=== PATIENT | female | born 1950 | race Caucasian/White ===

== ENCOUNTER 2017-08-30 17:38 | Inpatient (IN) | payer MEDICARE, BC ==
[2017-08-30 19:21] LABS: Hematocrit 35 % (35-47); Hemoglobin 12.1 g/dl (12.0-16.0); Mean Corpuscular HGB Conc 35 g/dl (31-36); Mean Corpuscular Hemoglobin 31 pg (27-31); Mean Corpuscular Volume 88 fL (80-97); Mean Platelet Volume 7.6 um3 (7.4-10.4); Platelet Count 287 10^3/ul (150-450); Red Blood Count 3.91 10^6/ul (4.00-5.40); Red Cell Distribution Width 13 % (10.5-15); White Blood Count 19.6 10^3/ul (3.5-10.8)
[2017-08-30 19:38] LABS: EGFR Non-African American 49.5 (>60)
[2017-08-30 19:44] LABS: ABS Basophils 0.1 10^3/ul (0-0.2); ABS Eosinophils 0 10^3/ul (0-0.6); ABS Lymphocytes 1.8 10^3/ul (1.0-4.8); ABS Monocytes 1.6 10^3/ul (0-0.8); ABS Neutrophils 16.1 10^3/ul (1.5-7.7); ABS Nucleated RBC 0 10^3/ul; Eosinophil % 0.2 % (0-6); Lymphocyte % 9.2 % (25-47); Nucleated Red Blood Cells % 0
[2017-08-30 20:29] LABS: Urine Appearance Cloudy; Urine Blood Negative (Negative); Urine Color Yellow; Urine Ketones Negative (Negative); Urine Protein Negative (Negative); Urine Specific Gravity 1.015 (1.010-1.030); Urine Urobilinogen Negative (Negative)
[2017-08-30] MEDS ORDERED: Iodixanol* (CONTRAST) 320 MG/ML 100 ML SDV IV ONE (21:00)
[2017-08-30] MEDS ORDERED: Metoclopramide IV* 5 MG/ML 2 ML VIAL IV ONE (23:16)
[2017-08-30] MEDS ORDERED: HYDROmorphone INJ* 2 MG/ML CARPUJECT SYRINGE IV SLOW PU ONE (23:16)
[2017-08-30] MEDS ORDERED: Ciprofloxacin 400MG IVPREMIX(* 400 MG/200 ML BAG IVPB ONE (23:59)
[2017-08-31] MEDS ORDERED: HYDROmorphone INJ* 2 MG/ML CARPUJECT SYRINGE IV PRN
[2017-08-31] MEDS ORDERED: metroNIDAZOLE IV 500 MG/100ML* 500 MG/100 ML BAG IVPB ONE
--- NOTE | 2017-08-31 00:19 | ED ---
Rick Jeffries Rebecca, scribed for Zoe Glass MD on 08/30/17 at 2010 . Abdominal Pain/Female - HPI Summary HPI Summary: Pt is a 66 y/ F accompanied by her son who presents to ED referred from [facility] c /o sudden onset RLQ abdominal pain since yesterday morning. Pain has been intermittent since onset, improving yesterday, then coming back this morning. On triage, pain is mild ranked 3/10, though on examination it is 4-5/10. Sx aggravated by walking. Additionally c/o nausea predominantly yesterday, slightly this morning. Denies fever, vomiting, dysuria, urinary frequency, hematuria, blood in stool, and hematemesis. Initially suspected UTI, but cranberry juice had no effect. Last ate at about 1300. Notes difficulty intubating as during her knee surgeries (done in [place]) and that fiber optics had to be used. No prior abdominal surgeries. Reports her weight to be 290 pounds. - History of Current Complaint Chief Complaint: EDAbdPain Stated Complaint: ABD PAIN Time Seen by Provider: 08/30/17 20:03 Hx Obtained From: Patient, Family/Trolley Wire Installer - son Onset/Duration: Sudden Onset, Lasting Days - Started yesterday, Still Present Timing: Intermittent Episode Lasting Severity Initially: Mild - 3/10 on triage Severity Currently: Moderate - 4-5/10 Pain Intensity: 3 - On triage Pain Scale Used: 0-10 Numeric Location: Discrete At: RLQ Radiates: No Character: Sharp Aggravating Factor(s): Other: - Walking Alleviating Factor(s): Nothing Associated Signs and Symptoms: Positive: Nausea. Negative: Fever, Urinary Symptoms, Vomiting Allergies/Adverse Reactions: Allergies Allergy/AdvReac Type Severity Reaction Status Date / Time Penicillins Allergy Unknown Rash Verified 08/30/17 18:15 Sulfa (Sulfonamide Allergy Unknown Rash Verified 08/30/17 18:16 Antibiotics) Home Medications: Home Medications Aspirin EC TAB* [Ecotrin EC Low Dose 81 MG*] 81 mg PO DAILY 08/30/17 [History Confirmed 08/30/17] Cholecalciferol (Vitamin D3) [Vitamin D3] 1,000 unit PO DAILY 08/30/17 [History Confirmed 08/30/17] Citalopram TAB* [CeleXA TAB*] 20 mg PO DAILY 08/30/17 [History Confirmed ] Eletriptan 40 mg (Nf)* [Relpax (NF)] 40 mg PO DAILY PRN 08/30/17 [History Confirmed 08/30/17] Esomeprazole(NF) [NEXium(NF)] 20 mg PO QAM 08/30/17 [History Confirmed 08/30/17] Ezetimibe/Simvastat 12/28(NF) [Vytorin 12/28(NF)] 1 tab PO DAILY 08/30/17 [ History Confirmed 08/30/17] Fexofenadine/Pseudoephedrine [Emily-D 24 Hour Tablet] 1 tab PO DAILY 08/30/17 [History Confirmed 08/30/17] Ibuprofen TAB* [Motrin TAB* 800 MG] 800 mg PO Q6H PRN 08/30/17 [History Confirmed 08/30/17] Levothyroxine TAB* [Synthroid TAB*] 137 mcg PO DAILY 08/30/17 [History Confirmed 08/30/17] Magnesium Oxide [Magnesium] 250 mg PO DAILY 08/30/17 [History Confirmed 08/30/17 ] Nebivolol (NF) [Bystolic (NF)] 20 mg PO DAILY 08/30/17 [History Confirmed ] Olmesartan Medoxomil [Benicar] 40 mg PO DAILY 08/30/17 [History Confirmed ] Potassium Chlor TAB* [Klor Con ER TAB*] 10 meq PO BID 08/30/17 [History Confirmed 08/30/17] Pregabalin CAP(*) [Lyrica CAP(*)] 100 mg PO BID PRN 08/30/17 [History Confirmed 08/30/17] PMH/Surg Hx/FS Hx/Imm Hx Previously Healthy: No - obese Endocrine/Hematology History: Denies: Hx Diabetes Cardiovascular History: Reports: Hx Hypercholesterolemia, Hx Hypertension Musculoskeletal History: Reports: Hx Fibromyalgia, Other Musculoskeletal History - Hx Chronic pain - Surgical History Surgery Procedure, Year, and Place: bilateral knee surgeries Infectious Disease History: No Infectious Disease History: Denies: Traveled Outside the [place] in Last 30 Days - Family History Known Family History: Positive: Cardiac Disease, Diabetes - Social History Alcohol Use: Rare Substance Use Type: Reports: None Smoking Status (MU): Former Smoker Review of Systems Negative: Fever Cardiovascular: Negative Respiratory: Negative Positive: Abdominal Pain, Nausea, Other - NEGATIVE: Hematemesis. Negative: Vomiting Positive: other - NEGATIVE: Blood in stool. Negative: dysuria, frequency, hematuria Skin: Negative Neurological: Negative Psychological: Normal All Other Systems Reviewed And Are Negative: Yes Physical Exam - Summary Physical Exam Summary: Appearance: ill-appearing, moderate pain distress, obese Skin: Warm, color reflects adequate perfusion, dry Head: Normal Head/Face inspection, atraumatic Eyes: Conjunctiva clear ENT: Normal inspection Neck: Supple, no nodes, no JVD Respiratory: Lungs clear, normal breath sounds, no respiratory distress Cardio: RRR, No murmur, pulses normal, brisk capillary refill Abdomen: RLQ tenderness, soft, positive guarding, positive rebound, non- distended Bowel sounds: Present Musculoskeletal: Strength Intact/ROM intact, no calf tenderness, no edema. Psychological: Normal Neuro: Alert, muscle tone normal, no focal deficit, moves all extremities well Triage Information Reviewed: Yes Vital Signs On Initial Exam: Initial Vitals Temp Pulse Resp BP Pulse Ox 97.9 F 68 18 115/71 96 08/30/17 18:12 08/30/17 18:12 08/30/17 18:12 08/30/17 18:12 08/30/17 18:12 Vital Signs Reviewed: Yes Diagnostics - Vital Signs Vital Signs Temp Pulse Resp BP Pulse Ox 08/30/17 19:58 98.3 F 62 137/59 98 08/30/17 18:12 97.9 F 68 18 115/71 96 - Laboratory Lab Results: Lab Results 08/30/17 08/30/17 08/30/17 Range/Units 19:14 19:14 19:14 WBC 19.6 H (3.5-10.8) 10^3/ul RBC 3.91 L (4.00-5.40) 10^6/ul Hgb 12.1 (12.0-16.0) g/dl Hct 35 (35-47) % MCV 88 (80-97) fL MCH 31 (27-31) pg MCHC 35 (31-36) g/dl RDW 13 (10.5-15) % Plt Count 287 (150-450) 10^3/ul MPV 7.6 (7.4-10.4) um3 Neut % (Auto) 81.9 (38-83) % Lymph % (Auto) 9.2 L (25-47) % [place] % (Auto) 8.1 H (0-7) % Eos % (Auto) 0.2 (0-6) % Baso % (Auto) 0.6 (0-2) % Absolute Neuts (auto) 16.1 H (1.5-7.7) 10^3/ul Absolute Lymphs (auto) 1.8 (1.0-4.8) 10^3/ul Absolute Monos (auto) 1.6 H (0-0.8) 10^3/ul Absolute Eos (auto) 0 (0-0.6) 10^3/ul Absolute Basos (auto) 0.1 (0-0.2) 10^3/ul Absolute Nucleated RBC 0 10^3/ul Nucleated RBC % 0 Sodium 128 L (135-145) mmol/L Potassium 3.7 (3.5-5.0) mmol/L Chloride 91 L (101-111) mmol/L Carbon Dioxide 30 (22-32) mmol/L Anion Gap 7 (2-11) mmol/L BUN 14 (6-24) mg/dL Creatinine 1.10 H (0.51-0.95) mg/dL Est GFR ( Amer) 59.9 (>60) Est GFR (Non-Af Amer) 49.5 (>60) BUN/Creatinine Ratio 12.7 (8-20) Glucose 123 H (70-100) mg/dL Lactic Acid 1.3 (0.5-2.0) mmol/L Calcium 9.2 (8.6-10.3) mg/dL Total Bilirubin 0.80 (0.2-1.0) mg/dL AST 28 (13-39) U/L ALT 30 (7-52) U/L Alkaline Phosphatase 96 (34-104) U/L Troponin I 0.01 (<0.04) ng/mL C-Reactive Protein 209.33 H (<8.01) mg/L Total Protein 6.7 (6.4-8.9) g/dL Albumin 3.8 (3.2-5.2) g/dL Globulin 2.9 (2-4) g/dL Albumin/Globulin Ratio 1.3 (1-3) Lipase 13 (11.0-82.0) U/L Result Diagrams: 08/31/17 05:13 08/31/17 05:13 Lab Statement: Any lab studies that have been ordered have been reviewed, and results considered in the medical decision making process. - EKG 2020 Cardiac Rate: NL EKG Rhythm: Sinus Rhythm ST Segment: Non-Specific Ectopy: PACs EKG Interpretation: Nl AV/IV CT, nl QTc, and nl axis EKG Comparison: Other - no prior to compare Re-Evaluation - Re-Evaluation First Eval Re-Evaluation Time: 23:10 Change: Unchanged Comment: pt with continued pain and nausea. Requests pain med. Dilaudid and reglan given Second Eval Re-Evaluation Time: 23:40 Change: Improved Comment: sitting in chair. Pain is improved after dilaudid. Informed of CT results Abdominal Pain Fem Course/Dx - Course Course Of Treatment: Pt with 2 day hx RLQ abd pain, anorexia, nausea, has wbc 19.6, CRP 209, sodium 128. CT with oral and IV contrast, discussed with [facility] radiologist, Dr. Levi Wheeler, reveals acute appendicitis with rupture. Discussed with Dr. Cortez. Advises start Cipro and Flagyl IV (pt allergic to penicillin and sulfa). Pt states that when she had bilateral knee surgery in [place] that she was a "difficult" intubation, that they had to use fiberoptics. Pt was given dilaudid and reglan for pain and nausea, and antibiotics were started in the ED. Pt admitted to Dr. Cortez. - Diagnoses Differential Diagnosis: Positive: Appendicitis, Renal Colic, Urinary Tract Infection Provider Diagnoses: Acute appendicitis with rupture - Provider Notifications Discussed Care Of Patient With: Andrea Cortez Time Discussed With Above Provider: 23:45 Instructed by Provider To: Admit As Inpatient - IV antibiotics and will consult. Also discussed with Dr. Wheeler, radiologist Discharge - Sign-Out/Discharge Documenting (check all that apply): Discharge/Admit/Transfer - admit Signing out patient TO: Rachel Jasso - no sign out, pt care entirely by Dr. Glass - Discharge Plan Condition: Stable Disposition: ADMITTED TO [facility] - Billing Disposition and Condition Condition: STABLE Disposition: Admitted to [facility] The documentation as recorded by the Rick montaño Rebecca accurately reflects the service I personally performed and the decisions made by me, Zoe Glass MD.
[2017-08-31 05:39] LABS: ABS Basophils 0.1 10^3/ul (0-0.2); ABS Eosinophils 0 10^3/ul (0-0.6); ABS Lymphocytes 0.7 10^3/ul (1.0-4.8); ABS Monocytes 0.9 10^3/ul (0-0.8); ABS Neutrophils 11.8 10^3/ul (1.5-7.7); ABS Nucleated RBC 0 10^3/ul; Eosinophil % 0 % (0-6); Hematocrit 35 % (35-47); Hemoglobin 12.5 g/dl (12.0-16.0); Lymphocyte % 4.9 % (25-47); Mean Corpuscular HGB Conc 36 g/dl (31-36); Mean Corpuscular Hemoglobin 31 pg (27-31); Mean Corpuscular Volume 88 fL (80-97); Mean Platelet Volume 7.9 um3 (7.4-10.4); Nucleated Red Blood Cells % 0; Platelet Count 267 10^3/ul (150-450); Red Blood Count 4.02 10^6/ul (4.00-5.40); Red Cell Distribution Width 13 % (10.5-15); White Blood Count 13.4 10^3/ul (3.5-10.8)
[2017-08-31 06:01] LABS: EGFR Non-African American 42.7 (>60)
--- NOTE | 2017-08-31 07:18 | RAD ---
INDICATION: Right lower quadrant pain COMPARISON: None TECHNIQUE: Axial source images were obtained from the hemidiaphragms to the symphysis pubis following administration of oral and intravenous contrast. 150 mL Omnipaque 300 was utilized. Coronal and sagittal reconstructed images were acquired. Lung bases: The lung bases are clear. Liver: The liver is normal in size. There are no masses. There is no ductal dilatation. Gallbladder: There are no calcified gallstones. There is no evidence of wall thickening or pericholecystic fluid. Spleen: The spleen is normal in size. There are no masses. Pancreas: There is no focal pancreatic mass or ductal dilatation. Adrenal glands: There is no evidence of adrenal mass. Kidneys: The kidneys are normal in size and position. There are prompt nephrograms and there is prompt excretion bilaterally. There are no renal parenchymal masses. There is no evidence of nephrolithiasis. Adenopathy: There is no evidence of adenopathy by size criteria. Fluid collections: There is a small amount of free fluid in the right lower quadrant in the periappendiceal region.. Vessels:There are no significant atherosclerotic changes involving the aorta. There is no focal aneurysm. The iliac vessels are normal in caliber. The IVC appears normal. GI tract: The appendix is dilated and fluid-filled. There is periappendiceal inflammatory change and there is secondary changes to include edema in the cecum and terminal ileum. There is a small amount of localized extraluminal gas consistent with acute appendicitis with perforation. Pelvic organs: The uterus and adnexa appear normal Bladder: There are no bladder masses. Abdominal and pelvic soft tissues: The extraperitoneal abdominal and pelvic soft tissues appear normal.. Osseous structures: There are no acute osseous findings. Other: None IMPRESSION: CT FINDINGS OF ACUTE APPENDICITIS WITH PERFORATION AND LOCALIZED EXTRALUMINAL GAS. THESE FINDINGS WERE CALLED BY THE ON-CALL SERVICE FOLLOWING THE EXAMINATION.
--- NOTE | 2017-08-31 08:54 | RAD ---
INDICATION: Hypertension. Appendicitis COMPARISON: None TECHNIQUE: An AP portable view obtained at 0038 hours is submitted. FINDINGS: Bones/Soft Tissues: There are no acute bony findings. Cardiomediastinal: The cardiomediastinal silhouette is normal. Lungs: There are no infiltrates. Pleura: There are no pleural effusions. Other: None IMPRESSION: NO ACTIVE DISEASE.
--- NOTE | 2017-08-31 10:12 | HP ---
CC: Jaswant Manrique MD HISTORY AND PHYSICAL: DATE OF ADMISSION: 08/31/17 CHIEF COMPLAINT: Abdominal pain. HISTORY OF PRESENT ILLNESS: The patient is a 66-year-old female who started with low abdominal pain on the morning of the 08/29/17. She originally thought she had urinary tract infection, but the pain got worse and she presented to the emergency room yesterday evening. The pain is fairly intense in the right lower quadrant. There is no fever, no chills, no nausea, no vomiting. No injury or acciden t. No antecedent illness. No diarrhea or blood in the stool or urine. PAST MEDICAL HISTORY: Reveals morbid obesity with hypertension, gastroesophageal reflux, arthritis a nd hypercholesterolemia. She has had bilateral knee replacements in the past. MEDICATIONS: Her medications include: 1. Benicar 40 mg a day. 2. Synthroid 137 mcg daily. 3. Lyrica 100 mg b.i.d. p.r.n. 4. Potassium 10 mEq p.o. b.i.d. 5. Ibuprofen p.r.n. 6. Emily p.r.n. 7. Vytorin 1 p.o. daily. 8. Nexium 20 mg p.o. daily. 9. Relpax 40 mg p.o. p.r.n. migraines. 10. Bystolic 20 mg p.o. daily. 11. Celexa 20 mg p.o. daily. 12. Aspirin 81 mg p.o. daily. 13. Vitamin D daily. 14. Magnesium daily. ALLERGIES: PENICILLIN and SULFA. SOCIAL HISTORY: She is single, she is a former smoker. She is here in town visiting her son. She i s from [place]. FAMILY HISTORY: Noncontributory. REVIEW OF SYSTEMS: Negative for any cardiac history. No chest pain, heart pain, angina pain or the like. No emphysema, bronchitis or chronic lung disease. No previous hepatobiliary disease. No melvin r gynecologic history. She is up-to-date in her Pap smears and mammogram with her primary. There is history of UTIs in the past. No renal stones or other renal disease. No major gastrointestinal dis ease. She has had some irritable bowel in the past. No polyps or bleeding or change in bowel functio n. Neuromuscular: She does have the bilateral knee replacement. She uses a cane and she has histor y of occasional migraines and anxiety. PHYSICAL EXAMINATION GENERAL: She is a well-developed, well-nourished obese female, consistent with stated age. VITAL SIGNS: Blood pressure 131/42, pulse 102 and regular, respirations 20 unlabored, O2 saturation 95%, temperature is 100.8. HEENT: Head and neck is unremarkable. Neck is without mucosa or adenopathy, although body habitus s omewhat limits the sensitivity of this exam. LUNGS: Clear bilaterally. HEART: Regular. No abnormal sounds. ABDOMEN: Obese and soft and exquisitely tender in the right lower quadrant with referred rebound ten derness, cough and percussion tenderness. There are no palpable masses or hernias. Bowel sounds are diminished. EXTREMITIES: Obese, but without any edema or ischemia. SKIN: Warm, well perfused. She is not diaphoretic. She is not jaundiced. DIAGNOSTIC STUDIES/LAB DATA: Laboratory studies show white blood count elevated at 19,000 with left shift and electrolytes are relatively normal, although sodium is somewhat depressed at 127, creatini ne is slightly elevated at 1.25. Urinalysis is noncontributory. CT scan is consistent with acute appendicitis, possible contained perforation. IMPRESSION: A 66-year-old morbidly obese female with hypertension and gastroesophageal reflux, who n ow has evidence of acute appendicitis. I discussed the options with her and with her son and I have recommended laparoscopic appendectomy. They understand the risks, the rationale, the recovery and alternatives. All the questions have been answered and we will proceed with laparoscopic appendectomy if schedule permits. [id number]/[facility] #: [id number]
[2017-08-31] MEDS: metroNIDAZOLE IV 500 MG/100ML* 500 MG/100 ML BAG IVPB SCH ×3 (10:48→22:19)
[2017-08-31] MEDS: Ciprofloxacin 400MG IVPREMIX(* 400 MG/200 ML BAG IVPB SCH ×3 (13:27→16:01)
[2017-08-31] MEDS ORDERED: Ondansetron ODT TAB* 4 MG ONE (15:40)
[2017-08-31] MEDS ORDERED: Propofol* 10 MG/ML 20 ML BTL IV PUSH ONE (15:40)
[2017-08-31] MEDS ORDERED: Dexamethasone IV* 4 MG/ML 1 ML (4 MG) ONE (15:40)
[2017-08-31] MEDS ORDERED: Lidocaine 2% PF * 5 ML VIAL ONE (15:40)
[2017-08-31] MEDS ORDERED: Ketorolac INJ* 30 MG/ML 1 ML VIAL ONE (15:40)
[2017-08-31] MEDS ORDERED: fentaNYL* 50 MCG/ML 2 ML VIAL (100 MCG VIAL) ONE (15:41)
[2017-08-31] MEDS ORDERED: Cisatracurium* 2 MG/ML MDV 5 ML ONE (15:41)
[2017-08-31] MEDS ORDERED: Midazolam* 1 MG/ML 5 ML VIAL (5 MG) ONE (15:41)
[2017-08-31] MEDS ORDERED: Heparin VIAL(*) 5000 UNITS/ML VIAL (FIVE THOUSAND) ONE (16:40)
[2017-08-31] MEDS: Heparin VIAL(*) 5000 UNITS/ML VIAL (FIVE THOUSAND) SUBCUT SCH (16:43)
[2017-08-31] MEDS ORDERED: fentaNYL* 50 MCG/ML 2 ML VIAL (100 MCG VIAL) IV PRN (17:09)
[2017-08-31] MEDS ORDERED: Naloxone* 0.4 MG/ML 1 ML VIAL IV PRN (17:09)
[2017-08-31] MEDS ORDERED: HYDROmorphone INJ* 1 MG/ML CARPUJECT SYRINGE IV PRN (17:09)
[2017-08-31] MEDS ORDERED: Metoclopramide IV* 5 MG/ML 2 ML VIAL IV PRN ×2 (17:10)
[2017-08-31] MEDS ORDERED: Bupivacaine 0.5% SDV PF* 30ML VIAL ONE (17:17)
[2017-08-31] MEDS ORDERED: EPHEDrine (Pressors)* 50 MG/ML VIAL ONE (17:39)
[2017-08-31] MEDS ORDERED: Phenylephrine INJ* 10 MG/ML 1 ML VIAL (10 MG) ONE (17:39)
[2017-08-31] MEDS ORDERED: Pregabalin CAP(*) 100 MG PO PRN (18:23)
[2017-08-31] MEDS ORDERED: Ondansetron 40 MG VIAL* 2 MG/ML 20 ML VIAL IV PRN (18:27)
[2017-08-31] MEDS ORDERED: NS 0.9% 1000 ML* 1,000 ML IV SCH ×2 (18:29)
--- NOTE | 2017-08-31 20:02 | OP ---
CC: Dr. Manrique OPERATIVE REPORT: DATE OF OPERATION: 08/31/17 DATE OF : 48 SURGEON: Jaswant Manrique MD DECONTAMINATION TECHNICIAN: None. ANESTHESIOLOGIST: Dr. Cantrell. ANESTHESIA: General anesthetic, local infiltration. PRE-OP DIAGNOSIS: Appendicitis. POST-OP DIAGNOSIS: Perforated appendicitis. OPERATIVE PROCEDURE: Laparoscopic appendectomy. DESCRIPTION OF PROCEDURE: The patient was supine on the operating table. After adequate general anesthetic, compression stockings, Ad Hugger warmer, and intravenous antibiotics, the abdomen was prepped with antiseptic, draped in a sterile fashion. Local infiltrative anesthesia was administered. Small umbilical incision was created. Blunt port cannula was placed. Insufflation was carried out with carbon dioxide. Additional cannulae, 5 mm left lower abdomen and left mid abdomen was placed through small stab wounds under direct vision. The omentum was pulled up out of the pelvis and perforated appendicitis was readily identified. There was a free fecalith of stool found in this collection. This was retrieved. The area was irrigated. The appendix was freed up from some of the adhesions, and the base of the appendix was divided using a 60 mm purple cartridge of the endo-ANDI stapler and the mesoappendix with a gonzalez cartridge. The appendix was placed in a retrieval bag and brought out through the umbilical site. The operative field was again irrigated with warm saline solution. Free fluid was suctioned out. A ROVERTO drain was brought into the abdomen and brought out through the left lower quadrant incision and was sutured to the skin using 3-0 Prolene and placed down into the pelvis. Operative field was again examined, then irrigated, and in good condition. The cannula removed. The pneumoperitoneum was allowed to escape. The umbilical fascia was closed with 0 Vicryl, skin with 5-0 Vicryl in all cases and followed by Steri-Strips. She tolerated the procedure well, was brought to Recovery in good condition. No complications. Drain is Blaine Richter. Sponge and instrument counts correct. Estimated blood loss 30 mL. [id number]/[facility] #: [id number] [facility]
[2017-09-01] MEDS: Heparin VIAL(*) 5000 UNITS/ML VIAL (FIVE THOUSAND) SUBCUT SCH ×4 (00:43→21:48)
[2017-09-01] MEDS: Ciprofloxacin 400MG IVPREMIX(* 400 MG/200 ML BAG IVPB SCH ×3 (00:44→16:04)
[2017-09-01] MEDS: metroNIDAZOLE IV 500 MG/100ML* 500 MG/100 ML BAG IVPB SCH ×3 (05:50→21:52)
[2017-09-01] MEDS: Levothyroxine TAB* 137 MCG TAB PO SCH (05:51)
[2017-09-01] MEDS ORDERED: Nebivolol (NF) 10 MG TAB PO SCH (09:00)
[2017-09-01] MEDS: Omeprazole CAP* 20 MG PO SCH (09:22)
[2017-09-01] MEDS: Valsartan TAB* 160 MG PO SCH (09:23)
--- NOTE | 2017-09-01 11:46 | ED ---
Antony Jeffries Tariq, scribed for Zoe Glass MD on 09/01/17 at 1144 . Progress - Progress Note Progress Note: This patient was NOT a SIGN OUT. Dr. Glass completed her care. Herman Glass MD 08/31/17 0230. - EKG/XRAY/CT CT: RUPTURED APPENDICITIS Re-Evaluation - Re-Evaluation First Eval Re-Evaluation Time: 23:10 Change: Unchanged Comment: pt with continued pain and nausea. Requests pain med. Dilaudid and reglan given Second Eval Re-Evaluation Time: 23:40 Change: Improved Comment: sitting in chair. Pain is improved after dilaudid. Informed of CT results Course/Dx - Course Course Of Treatment: Pt with 2 day hx RLQ abd pain, anorexia, nausea, has wbc 19.6, CRP 209, sodium 128. CT with oral and IV contrast, discussed with [facility] radiologist, Dr. Levi Wheeler, reveals acute appendicitis with rupture. Discussed with Dr. Cortez. Advises start Cipro and Flagyl IV (pt allergic to penicillin and sulfa). Pt states that when she had bilateral knee surgery in [place] that she was a "difficult" intubation, that they had to use fiberoptics. Pt was given dilaudid and reglan for pain and nausea, and antibiotics were started in the ED. Pt admitted to Dr. Cortez, after CT abd pelvis shows acute appendicitis with contained perforation. - Diagnoses Provider Diagnoses: Acute appendicitis with rupture - Provider Notifications Time Discussed With Above Provider: 23:45 Instructed by Provider To: Admit As Inpatient - IV antibiotics and will consult Also discussed with Dr. Wheeler, radiologist Discharge - Sign-Out/Discharge Documenting (check all that apply): Discharge/Admit/Transfer - admit Dr. Cortez - Discharge Plan Condition: Stable Disposition: ADMITTED TO [facility] - Billing Disposition and Condition Condition: STABLE Disposition: Admitted to [facility] The documentation as recorded by the Antony montaño Tariq accurately reflects the service I personally performed and the decisions made by ca, Zoe Glass MD.
--- NOTE | 2017-09-01 12:43 | PN ---
Progress Note - Progress Note Date of Service: 09/01/17 Note: POD#1 s/p perf appx Afeb, VS noted Jaymie some po's , no N/V, No stool/flatus Pain control OK Voiding ROVERTO output moderate, still serosang. Abd: obese, soft, sore, clean Impr: doing well s/p lap appy for perf Cont IV abx cont ROVERTO drain Poss home 09/02 on oral abx poss d/c ROVERTO 09/02
[2017-09-01] MEDS ORDERED: NEBIVOLOL 20 MG PO SCH (21:00)
[2017-09-02] MEDS: oxyCODONE/Acetamin 5/325 MG* TAB PO PRN ×2 (00:24→10:10)
[2017-09-02] MEDS: Ciprofloxacin 400MG IVPREMIX(* 400 MG/200 ML BAG IVPB SCH (05:03)
[2017-09-02] MEDS: Levothyroxine TAB* 137 MCG TAB PO SCH (06:33)
[2017-09-02] MEDS: metroNIDAZOLE IV 500 MG/100ML* 500 MG/100 ML BAG IVPB SCH (06:34)
[2017-09-02] MEDS: Heparin VIAL(*) 5000 UNITS/ML VIAL (FIVE THOUSAND) SUBCUT SCH (06:36)
[2017-09-02 07:41] VITALS: BP 157/72
[2017-09-02] MEDS ORDERED: NEBIVOLOL 20 MG PO SCH (08:08)
--- NOTE | 2017-09-02 09:09 | PN ---
Progress Note - Progress Note Date of Service: 09/02/17 SOAP: Subjective:POD#2 S/P LAP APPENDECTOMY(PERFORATED) good pain control with po meds;eating solids;walking [] Objective:afeb,VSS;lungs:clear; heart:RRR;abd:+bs,obese,ROVERTO serosang,small output ;incisions intact with steristrips,no erythema or drainage;ext:nontender [] Assessment:stable [] Plan:discharge home today,ROVERTO drain removed,instructions reviewed;will prescribe Cipro and Flagyl for 10 days;percocet 5/325mg;office visit 09/09/17 []
[2017-09-02] MEDS: Omeprazole CAP* 20 MG PO SCH (10:09)
[2017-09-02] MEDS: Valsartan TAB* 160 MG PO SCH (10:09)
--- NOTE | 2017-09-03 04:14 | DS ---
DISCHARGE SUMMARY: DATE OF ADMISSION: 08/31/17 DATE OF DISCHARGE: 09/02/17 PRINCIPAL ADMITTING DIAGNOSIS: Appendicitis. OPERATIVE PROCEDURE: Laparoscopic appendectomy. COMPLICATIONS: None. HOSPITAL COURSE: The patient is a 66-year-old female came into the hospital in the wee hours of 08/31/17. She had evidence of appendicitis and was taken to the operating room where she was found to have acute appendicitis with perforation. She had a laparoscopic appendectomy and washout of the area and placement of a drain tube. She was maintained on intravenous antibiotics for another day and half and on 09/02/17, she was progressing nicely, tolerating oral intake and afebrile. She was able to ambulate independently and was voiding. Her Blaine-Richter drain is removed, and she will be discharged home with prescriptions for oral antibiotics and will follow up in the office thereafter. She understands to call if anything is amiss. [id number]/[facility] #: [id number] [facility]
== END 2017-09-02 10:25 | disposition home or self-care (01) | DRG 339 ==
LOC: ED 17:38 → SSU 08-31 00:17
PROVIDERS: ADMIT Surgery; ATTEND Surgery
PROC: 0DTJ4ZZ Resection of Appendix, Percutaneous Endoscopic Approach (ICD-10-PCS; principal; 2017-08-31 17:30)
DX: K35.3 Acute appendicitis with localized peritonitis (principal); Z68.41 Body mass index [BMI] 40.0-44.9, adult; E87.1 Hypo-osmolality and hyponatremia; E66.01 Morbid (severe) obesity due to excess calories; I10 Essential (primary) hypertension; K21.9 Gastro-esophageal reflux disease without esophagitis; E78.00 Pure hypercholesterolemia, unspecified; M19.90 Unspecified osteoarthritis, unspecified site; E03.9 Hypothyroidism, unspecified; Z96.653 Presence of artificial knee joint, bilateral; F41.9 Anxiety disorder, unspecified; G43.909 Migraine, unspecified, not intractable, without status migrainosus; K58.9 Irritable bowel syndrome, unspecified; M79.7 Fibromyalgia; G89.29 Other chronic pain; Z82.49 Family history of ischemic heart disease and other diseases of the circulatory system; Z88.0 Allergy status to penicillin; Z88.2 Allergy status to sulfonamides; Z87.891 Personal history of nicotine dependence; Z72.89 Other problems related to lifestyle; Z87.440 Personal history of urinary (tract) infections; Z83.3 Family history of diabetes mellitus
CPT/HCPCS: 36415; 71045; 74177; 80048; 80053; 81003; 81015; 83605; 83690; 84484; 85025; 86140; 87086; 88304; 93005; 99284; A9270-GY; C1776; J0744; J1100; J1170; J1644; J1885; J2250; J2704; J2765; J3010; J3490; Q9967